=== PATIENT | female | born 1980 | race Caucasian/White ===

== ENCOUNTER 2024-07-24 21:19 | Emergency (ER) | payer MEDICAID, MEDICARE ==
[~2024-07-24] VITALS: Ht 154.9 cm; Wt 68.0 kg
[2024-07-24] MEDS ORDERED: ACETAMINOPHEN 500 MG TABLET ONE (22:38)
[2024-07-24] MEDS: ACETAMINOPHEN 500 MG TABLET PO ONE (22:41)
[2024-07-24 23:54] VITALS: TEMP 97.8
[2024-07-25] MEDS ORDERED: CYCL5TAB PO (02:00)
[2024-07-25 02:59] VITALS: BP 126/78; O2SAT 98
== END 2024-07-25 03:00 | disposition home or self-care (01) ==
LOC: ER 21:39
DX: S20.211A Contusion of right front wall of thorax, initial encounter (principal); F17.210 Nicotine dependence, cigarettes, uncomplicated; M25.512 Pain in left shoulder; R05.9 Cough, unspecified; R51.9 Headache, unspecified; R03.0 Elevated blood-pressure reading, without diagnosis of hypertension; Z88.5 Allergy status to narcotic agent; V49.9XXA Car occupant (driver) (passenger) injured in unspecified traffic accident, initial encounter; Y93.89 Activity, other specified; Y92.488 Other paved roadways as the place of occurrence of the external cause; Y99.8 Other external cause status
CPT/HCPCS: 71101; A4606; A4663; A9150